=== PATIENT | female | born 1945 | race Caucasian/White ===

== ENCOUNTER 2024-10-20 16:30 | Inpatient (IN) | payer MEDICARE, BC ==
[2024-10-20] MEDS: VERAPAMIL SYRINGE (5 MG/10 ML) INTRAARTER ONE (09:28)
[~2024-10-20 16:30] MED LIST: HEPARIN SODIUM,PORCINE (1 ML) 2,500 UNIT in SODIUM CHLORIDE 0.9% 250 ML IRRIGATION PRN; HEPARIN SODIUM,PORCINE 10,000 UNIT in SODIUM CHLORIDE 0.9% 1,000 ML IRRIGATION PRN
--- NOTE | 2024-10-20 16:39 | ED ---
General Adult HPI - General Stated complaint: chest pain Time Seen by Provider: 10/20/24 16:36 - History of Present Illness Initial comments: Dictation was produced using [employer] dictation software. please excuse any grammatical, word or spelling errors. Chief Complaint: 79-year-old female transfer from [facility] for concerns of acute coronary syndrome History of Present Illness: Patient is an 79-year-old female initially presented to [facility] for chest pressure. Patient denies any history of cardiac issues. States that she does have a history of hypertension dyslipidemia. She was worked up at [facility] where she was found to have abnormal EKG along with elevated troponins. Case was discussed with cardiology who did not feel that patient's EKG showed troponin elevations. At the bedside patient states that her symptoms are significantly improved. She states that she has significant family history of heart attacks. The ROS documented in this emergency department record has been reviewed and confirmed by me. Those systems with pertinent positive or negative responses have been documented in the HPI. All other systems are other negative and/or noncontributory. - Related Data Home Medications Medication Instructions Recorded Confirmed Atorvastatin [Lipitor] 40 mg PO HS 10/20/24 10/20/24 Lisinopril-Hctz 20-12.5 mg 1 tab PO HS 10/20/24 10/20/24 [Zestoretic 20-12.5] Meclizine [Antivert] 25 mg PO HS 10/20/24 10/20/24 atenoloL [Tenormin] 25 mg PO HS 10/20/24 10/20/24 Allergies Allergy/AdvReac Type Severity Reaction Status Date / Time cephalexin [From Keflex] Allergy Rash/Hives Verified 10/20/24 17:11 codeine Allergy DIZZINESS Verified 10/20/24 17:11 diazepam [From Valium] AdvReac Unknown Verified 10/20/24 16:40 Review of Systems ROS Statement: Those systems with pertinent positive or pertinent negative responses have been documented in the HPI. ROS Other: All systems not noted in ROS Statement are negative. General Exam - General Exam Comments Initial Comments: PHYSICAL EXAM: General Impression: Alert and oriented x3, not in acute distress HEENT: Normocephalic atraumatic, extra-ocular movements intact, pupils equal and reactive to light bilaterally, mucous membranes moist. Cardiovascular: Heart regular rate and rhythm Chest: Able to complete full sentences, no retractions, no tachypnea Abdomen: abdomen soft, non-tender, non-distended, no organomegaly Musculoskeletal: Pulses present and equal in all extremities, no peripheral edema Motor: no focal deficits noted Neurological: CN II-XII grossly intact, no focal motor or sensory deficits noted Skin: Intact with no visualized rashes Psych: Normal affect and mood Course Vital Signs 10/20/24 10/20/24 16:33 16:51 Temperature 98.4 F Pulse Rate 93 85 Respiratory 16 18 Rate Blood Pressure 130/101 132/107 O2 Sat by Pulse 98 98 Oximetry - Reevaluation(s) Reevaluation #1: 10/20/24 16:37 I did speak with transferring nurse practitioner from [facility] regarding patient's clinical status I did also receive a call from cardiology, Dr. Park who reviewed patient's EKG from [facility] states that he did not see any appreciable EKG abnormalities. EKG Findings - EKG Comments: EKG Findings:: My EKG interpretation: Ventricular rate 9, sinus rhythm,. 166, QRS 84, QTc 395. No IL prolongation, no QTC prolongation. Very mild diffuse ST elevations with concavity upward likely representing benign early repolarization. Overall, this EKG is specific Medical Decision Making - Medical Decision Making Was pt. sent in by a medical professional or institution (, PA, MRI TECHNICIAN, urgent care, hospital, or skilled nursing...) When possible be specific @ -Outside emergency department Did you speak to anyone other than the patient for history (EMS, parent, family, police, friend...)? What history was obtained from this source @ -Transferred nurse practitioner as described above Did you review nursing and triage notes (agree or disagree)? Why? @ -I reviewed and agree with nursing and triage notes Were old charts reviewed (outside hosp., previous admission, EMS record, old EKG, old radiological studies, urgent care reports/EKG's, skilled nursing records)? Report findings @ -Transfer documentations were reviewed showing high-sensitivity troponin elevation of 1500 Differential Diagnosis (chest pain, altered mental status, abdominal pain women, abdominal pain men, vaginal bleeding, musculoskeletal, weakness, fever, dyspnea, syncope, headache, dizziness, GI bleed, back pain, seizure, CVA, palpatations, mental health)? @ -Differential Chest Pain: Stable Angina, Unstable Angina, STEMI, NSTEMI Aortic Dissection, Pneumothorax, Musculoskeletal, Esophageal Spasm GERD, Cholecystitis, Pancreatitis, Zoster, this is not meant to be an all-inclusive list. EKG interpreted by me (3pts min.). @ -See above repeat EKG shows no dynamic changes X-rays interpreted by me (1pt min.). @ -None done CT interpreted by me (1pt min.). @ -None done U/S interpreted by me (1pt. min.). @ -None done What testing was considered but not performed or refused? (CT, X-rays, U/S, labs)? Why? @ -None What meds were considered but not given or refused? Why? @ -None Was smoking cessation discussed for >3mins.? @ -No Were there social determinants of health that impacted care today? How? (Homelessness, low income, unemployed, alcoholism, drug addiction, transportation, low edu. Level, literacy, decrease access to med. care, senior care, rehab)? @ -No Was there de-escalation of care discussed even if they declined (Discuss DNR or withdrawal of care, Hospice)? DNR status @ -No What co-morbidities impacted this encounter? (DM, HTN, Smoking, COPD, CAD, Cancer, CVA, ARF, Chemo, Hep., AIDS, mental health diagnosis, sleep apnea, morbid obesity)? @ -History of myocardial infarction, hypertension Was patient admitted / discharged? Hospital course, mention meds given and route, prescriptions, significant lab abnormalities, going to OR and other pertinent info. @ -79-year-old female presents to the emergency department for acute coronary syndrome. Vital signs stable. Transfer documentations reviewed. No obvious signs of ischemia infarction seen on prehospital EKG. Her EKG showed similar findings. Repeat EKG showed no dynamic changes. Patient continued on heparin. Crossed over to nitroglycerin topical. Case discussed with hospitalist for admission. Did you discuss the management of the patient with other professionals (professionals i.e. , PA, MRI TECHNICIAN, lab, RT, psych nurse, social media developer, residential program coordinator, teacher, strike warfare/missile systems officer, case finisher)? Give summary @ -See above Was critical care preformed (if so, how long)? @ -Yes, 33 minutes for management of acute coronary syndrome Undiagnosed new problem with uncertain prognosis? @ -No Drug Therapy requiring intensive monitoring for toxicity (Heparin, Nitro, Insulin, Cardizem)? @ -No Were any procedures done? @ -No Diagnosis/symptom? Acute, or Chronic, or Acute on Chronic? Uncomplicated (without systemic symptoms) or Complicated (systemic symptoms)? @ -Acute coronary syndrome Side effects of treatment? @ -No Exacerbation, Progression, or Severe Exacerbation? @ -No Poses a threat to life or bodily function? How? (Chest pain, USA, MA, pneumonia, PE, COPD, DKA, ARF, appy, cholecystitis, CVA, Diverticulitis, Homicidal, Suicidal, threat to staff... and all critical care pts) @ -yes Disposition Clinical Impression: Coronary syndrome, acute Disposition: ADMITTED IP TO THIS HOSP Condition: Serious Referrals: Cheyenne William MD [Primary Care Provider] - 1-2 days Decision Time: 17:22
[2024-10-20] MEDS ORDERED: HEPARIN SODIUM 1,000 UN/ML (10ML VL) IV PRN (16:59)
[2024-10-20] MEDS: HEPARIN SOD,PORK IN 0.45% NACL 25,000 UNIT in 0.45% NACL 1 250ML.BAG IV SCH (17:21)
[2024-10-20] MEDS: HEPARIN SODIUM 1,000 UN/ML (10ML VL) IV ONE (17:23)
[2024-10-20] MEDS ORDERED: ALPRAZolam 0.25 MG TAB PO PRN (18:00)
[2024-10-20] MEDS ORDERED: NITROGLYCERIN SL TABS 0.4 MG TAB SUBLINGUAL PRN (18:00)
[2024-10-20] MEDS ORDERED: ALPRAZolam 0.5 MG TAB PO PRN (18:00)
[2024-10-20] MEDS: ATORVASTATIN 80 MG TAB PO STA (18:24)
[2024-10-20] MEDS: ASPIRIN 325 MG TAB PO STA (18:24)
[2024-10-20] MEDS: NITROGLYCERIN OINT 1 INCH/GM PACKET TOPICAL SCH (18:26)
[2024-10-20] MEDS: SODIUM CHLORIDE 0.9% 1,000 ML IV ONE (19:25)
[2024-10-20] MEDS: MIDAZOLAM 2 MG/2 ML VIAL IVP ONE (19:25)
[2024-10-20] MEDS: LIDOCAINE 1% INJ 10MG/ML (20 ML MDV) SQ ONE (19:27)
[2024-10-20] MEDS ORDERED: RX INFO: IV CONTRAST WAS GIVEN 1 EACH MISC MISCELLANE PRN (19:45)
--- NOTE | 2024-10-20 19:47 | P.PCN ---
Date of Procedure: 10/20/24 Operative Findings: CARDIAC CATHETERIZATION PERFORMING PHYSICIAN: Deangelo Shah MD, RPVI PROCEDURE PERFORMED: 1. Selective right and left coronary angiogram 2. Left heart catheterization 3. Ultrasound-guided access of the right radial artery INDICATION: Acute non-ST elevation myocardial infarction COMPLICATION: None APPROACH: Right radial artery LEVEL OF SEDATION: Moderate with a sedation length of 17 minutes PROCEDURE DESCRIPTION: After obtaining an informed consent, the patient was brought to cardiac lab aide. Local anesthesia was performed using lidocaine subcutaneously. The right radial artery was cannulated using Seldinger technique, the guidewire passed easily, following that we advanced a 5-Burmese sheath dilator assembly, the wire and dilator were removed and sheath was flushed. Following that, 2 mg of verapamil along with 5000 unit heparin were given. Selective right and left coronary angiogram using a 6-Burmese JR4 and JL 3.5 catheters. Following that we did left heart catheterization using 6-Burmese pigtail catheter. The procedure was completed there was no complication. SELECTIVE CORONARY ANGIOGRAM: The right coronary artery: Large-caliber vessel nondominant vessel appears to be angiographically normal Left main: Is angiographically normal The left circumflex: Large caliber vessel nondominant vessel with no evidence of high-grade stenosis identified The left anterior descending artery: The ostial LAD has a lesion appears to be in the range of 40%. The mid and distal LAD appeared to be angiographically normal HEMODYNAMICS: The LVEDP was 20 mmHg with no significant gradient across aortic valve CONCLUSION: 1. Intermediate disease involving the ostial LAD 2. Elevated left-sided filling pressure POSTPROCEDURE MANAGEMENT: Medical treatment Consider IFR of the LAD if he remains symptomatic
[2024-10-20] MEDS: IOPAMIDOL-370 100ML BTL INJ ONE (19:49)
[2024-10-20] MEDS: HEPARIN SODIUM,PORCINE 10,000 UNIT in SODIUM CHLORIDE 0.9% 1,000 ML IRRIGATION ONE (19:49)
[2024-10-20] MEDS: HEPARIN SODIUM,PORCINE (1 ML) 2,500 UNIT in SODIUM CHLORIDE 0.9% 250 ML IRRIGATION ONE (19:49)
--- NOTE | 2024-10-20 19:50 | P.PCN ---
Date of Procedure: 10/20/24 Operative Findings: This is an 79-year-old female patient with a past medical history significant for hypertension and dyslipidemia presented to the emergency department initially at [facility] complaining of chest discomfort but she was in her usual state of health till earlier today when she started experiencing discomfort in the middle of the chest as a burning sensation with no radiation to her arms or neck or shoulders or back and no associated symptoms of shortness of breath or sweating or dizziness or lightheadedness or any feeling of heart racing or fluttering or presyncope or syncope. Initially she presented to the emergency department at [facility] where she underwent further workup including EKG showing sinus mechanism with nonspecific ST and T wave abnormalities but the troponin came to be elevated and consistent with acute coronary syndrome. The rest of the workup including CBC and BMP came in to be unremarkable. Giving the ongoing chest discomfort in spite of being on nitroglycerin IV and heparin IV she was transferred to [facility] for a heart catheterization. She underwent a heart catheterization earlier today and that revealed no evidence of high-grade stenosis but intermediate lesion involving the ostial LAD. There was PRISCILLA II flow in the LAD as well. The apex of the apex of the heart was not tisha concerning for Takotsubo cardiomyopathy will obtain an echocardiogram for further clarification. The physical examination is remarkable for stable vital signs with regular rate and rhythm and soft systolic murmur at the apical area with a clear breathing sounds bilaterally and no edema was noted Assessment Acute coronary syndrome/acute non-ST elevation myocardial infarction Hypertension Dyslipidemia Plan Continue the current medical regimen Obtain an echocardiogram with Doppler Dual antiplatelet therapy along with high intensity statin Aggressive blood pressure lowering Follow-up with the patient
[2024-10-20] MEDS: ATORVASTATIN 80 MG TAB PO SCH (20:17)
[2024-10-20] MEDS: SODIUM CHLORIDE 0.9% 1,000 ML IV SCH (20:17)
--- NOTE | 2024-10-20 20:51 | P.HPIM ---
History of Present Illness H&P Date: 10/20/24 Chief Complaint: Chest pressure Very pleasant 79-year-old patient who follows with Dr. Cheyenne William. Chronic stable medical conditions include Mnire's disease, hypertension, hyperlipidemia. Because of manage she is sometimes dizzy. She lost her in June 2024. Does get anxious. Woke up this morning with chest pressure. Did not go away. Also has some dizziness. Very decided to come down to [facility]. EKG showed poor R wave progression. High sensitive troponin showed 1595. Patient was taken to the cardiac Research Advisor. By Dr. Shah. Patient was found to have LAD 40% lesion. Review of systems: GEN.: Tired EYES: None HEENT: None NECK: None RESPIRATORY: None CARDIOVASCULAR: None GASTROINTESTINAL: None GENITOURINARY: None MUSCULOSKELETAL: None LYMPHATICS: None HEMATOLOGICAL: None PSYCHIATRY: Anxious e NEUROLOGICAL: Trouble sleeping e Social history: about 5 months ago. No smoking alcohol. Physical examination: VITAL SIGNS: 98.4, 98, 18, 129 x 86, 98% room air GENERAL: BMI 27.5, reclining in bed awake slightly anxious. EYES: Pupils equal. Conjunctiva lilliana l. HEENT: External appearance of nose and ears normal, oral cavity grossly normal. NECK: JVD not raised; masses not palpable. HEART: First and second heart sounds are normal; no edema. LUNGS: Respiratory rate normal; clear to auscultation. ABDOMEN: Soft, nontender, liver spleen not palpable, no masses palpable. PSYCH: [Alert and oriented x3; mood and affect anxious. MUSCULOSKELETAL:No Clubbing/cyanosis;muscles-grossly intact NEUROLOGICAL: Cranial nerves grossly intact; no facial asymmetry, power and sensation grossly intact. LYMPHATICS: No lymph nodes palpable in the axilla and neck INVESTIGATIONS, reviewed in the clinical context: Troponin I 3.7 Lab work from [facility]: High-sensitivity troponin 1595. Sodium 144 potassium 4.1 BUN 14 creatinine 0.88 white count 6.9 hemoglobin 14.2 platelets 167 EKG tracing sinus rhythm poor R wave progression Assessment plan: -Acute non-ST elevation myocardial infarction, possibly plaque rupture Received IV heparin in the ER Cardiac cath showing 40% lesion in LAD. Medical management -Nonobstructive coronary artery disease. Aspirin. Lipitor. Plavix. -Essential hypertension Toprol-XL 25 mg a day -Hyperlipidemia Lipitor 80 mg nightly -Chronic insomnia Ambien 2.5 mg nightly -Anxiety disorder not otherwise specified Paxil 10 mg a day -Mnire's disease -Full code Care was discussed with the patient. Questions answered. 2D echo ordered. Past Medical History Past Medical History: Chest Pain / Angina Additional Past Medical History / Comment(s): Meniere's disease dx 2016 History of Any Multi-Drug Resistant Organisms: None Reported Past Surgical History: Hysterectomy, Joint Replacement Additional Past Surgical History / Comment(s): Knee sx Past Psychological History: No Psychological Hx Reported Smoking Status: Never smoker Past Alcohol Use History: None Reported Past Drug Use History: None Reported Medications and Allergies Home Medications Medication Instructions Recorded Confirmed Type Atorvastatin [Lipitor] 40 mg PO HS 10/20/24 10/20/24 History Lisinopril-Hctz 20-12.5 mg 1 tab PO HS 10/20/24 10/20/24 History [Zestoretic 20-12.5] Meclizine [Antivert] 25 mg PO HS 10/20/24 10/20/24 History atenoloL [Tenormin] 25 mg PO HS 10/20/24 10/20/24 History Allergies Allergy/AdvReac Type Severity Reaction Status Date / Time cephalexin [From Keflex] Allergy Rash/Hives Verified 10/20/24 17:11 codeine Allergy DIZZINESS Verified 10/20/24 17:11 diazepam [From Valium] AdvReac Unknown Verified 10/20/24 16:40 Physical Exam Vitals: Vital Signs Temp Pulse Resp BP Pulse Ox 10/20/24 19:07 98 18 129/86 98 10/20/24 18:25 87 18 128/96 98 10/20/24 18:00 89 18 123/98 99 10/20/24 16:51 85 18 132/107 98 10/20/24 16:33 98.4 F 93 16 130/101 98 Intake and Output 10/20/24 10/20/24 10/20/24 06:59 14:59 22:59 Intake Total 100 Balance 100 Intake: IV 100 Other: Weight 61.689 kg Results Labs: Abnormal Lab Results - Last 24 Hours (Table) 10/20/24 Range/Units 17:30 Troponin I 3.710 H* (0.000-0.034) ng/mL
[2024-10-21] MEDS: ZOLPIDEM 5 MG TAB PO SCH (05:25)
[2024-10-21] MEDS: METOPROLOL SUCCINATE (ER) 25 MG TAB.ER.24H PO SCH (08:55)
[2024-10-21] MEDS: PARoxetine 10 MG TAB PO SCH (08:55)
[2024-10-21] MEDS: ASPIRIN 81 MG PO SCH (08:55)
[2024-10-21] MEDS: CLOPIDOGREL 75 MG TAB PO SCH (08:56)
[2024-10-21] MEDS: ACETAMINOPHEN TAB 500 MG TAB PO PRN (08:56)
[2024-10-21] MEDS ORDERED: ASPIRIN 325 MG TAB PO SCH (09:00)
[2024-10-21 10:28] LABS: Chol/HDL Ratio 2.83 Ratio; LDL Cholesterol,Calculated 70.1 mg/dL (0.0-131.0)
--- NOTE | 2024-10-21 10:46 | P.PN ---
Subjective Progress Note Date: 10/21/24 This is an 79-year-old female patient with a past medical history significant for hypertension and dyslipidemia presented to the emergency department initially at [facility] complaining of chest discomfort but she was in her usual state of health till earlier today when she started experien cing discomfort in the middle of the chest as a burning sensation with no radiation to her arms or neck or shoulders or back and no associated symptoms of shortness of breath or sweating or dizziness or lightheadedness or any feeling of heart racing or fluttering or presyncope or syncope. Initially she presented to the emergency department at [facility] where she underwent further workup including EKG showing sinus mechanism with nonspecific ST and T wave abnormalities but the troponin came to be elevated and consistent with acute coronary syndrome. The rest of the workup including CBC and BMP came in to be unremarkable. Giving the ongoing chest discomfort in spite of being on nitroglycerin IV and heparin IV she was transferred to [facility] for a heart catheterization. She underwent a heart catheterization earlier today and that revealed no evidence of high-grade stenosis but intermediate lesion involving the ostial LAD. There was PRISCILLA II flow in the LAD as well. The apex of the apex of the heart was not tisha concerning for Takotsubo cardiomyopathy will obtain an echocardiogram for further clarification. 10/21 Patient seen and examined. No complaints of chest pain. Yesterday patient underwent cardiac catheterization as above. She has been started on aspirin, statin, Plavix and Toprol-XL. No complaints of chest pain. Blood pressure 108/73, heart rate 80, pulse ox 96% on room air The physical examination is remarkable for stable vital signs with regular rate and rhythm and soft systolic murmur at the apical area with a clear breathing sounds bilaterally and no edema was noted Assessment Acute coronary syndrome/acute non-ST elevation myocardial infarction Hypertension Dyslipidemia Plan Continue the current medical regimen Obtain an echocardiogram with Doppler Dual antiplatelet therapy along with high intensity statin If echocardiogram is unremarkable, patient is cleared for discharge home today. Patient will follow-up with Dr. Shah in 1 week Nurse practitioner note has been reviewed, I agree with documented findings and plan of care. Patient was seen and examined. Objective - Vital Signs Vital signs: Vital Signs Temp 98.0 F 10/21/24 08:53 Pulse 80 10/21/24 08:53 Resp 16 10/21/24 08:53 BP 108/73 10/21/24 08:53 Pulse Ox 96 10/21/24 08:53 FiO2 Intake & Output 10/20/24 10/21/24 10/21/24 18:59 06:59 18:59 Intake Total 100 240 Balance 100 240 Weight 61.689 kg 62.4 kg Intake: IV 100 Oral 240 Other: # Voids 1 - Labs Labs: Abnormal Lab Results - Last 24 Hours (Table) 10/20/24 10/20/24 10/20/24 Range/Units 17:30 20:17 23:22 Troponin I 3.710 H* 3.150 H* 3.100 H* (0.000-0.034) ng/mL
[2024-10-21] MEDS: SACUBITRIL/VALSARTAN 24 MG-26 MG TABLET PO SCH (14:49)
[2024-10-21] MEDS: DAPAGLIFLOZIN PROPANEDIOL 10 MG TABLET PO SCH (14:49)
--- NOTE | 2024-10-21 17:37 | CA ---
Transthoracic Echo Report Name: Gracy Leach Age: 79 Gender: F : 1945 Exam Date: 10/21/2024 13:38 Exam Location: [facility] Ht (in): 59 Wt (lb): 136 Ordering Physician: Deangelo Shah MD ([id number]) Attending/Referring Phys: Steam Conditioning Operator Lorrie Valente RDCS Procedure CPT: Indications: ACS Cardiac Hx: Technical Quality: Fair Contrast 1: Definity Total Dose (mL): 2 Contrast 2: Total Dose (mL): MEASUREMENTS (Male / Female) Normal Values 2D ECHO LV Diastolic Diameter PLAX 3.8 cm 4.2 - 5.9 / 3.9 - 5.3 cm LV Systolic Diameter PLAX 2.6 cm IVS Diastolic Thickness 1.1 cm 0.6 - 1.0 / 0.6 - 0.9 cm LVPW Diastolic Thickness 1.1 cm 0.6 - 1.0 / 0.6 - 0.9 cm LV Relative Wall Thickness 0.6 RV Internal Dim ED PLAX 1.7 cm LA Volume 41.3 cm??? 18 - 58 / 22 - 52 cm??? LA Volume Index 25.5 cm???/m??? 16 - 28 cm???/m??? M-MODE Aortic Root Diameter MM 3.1 cm LA Systolic Diameter MM 2.4 cm LA Ao Ratio MM 0.8 AV Cusp Separation MM 1.7 cm DOPPLER AI Peak Velocity 428.9 cm/s AI Peak Gradient 73.6 mmHg AI Pressure Half Time 517.2 ms MV Area PHT 3.1 cm??? Mitral E Point Velocity 44.6 cm/s Mitral A Point Velocity 51.4 cm/s Mitral E to A Ratio 0.9 MV Deceleration Time 242.3 ms TR Peak Velocity 261.9 cm/s TR Peak Gradient 27.4 mmHg Right Ventricular Systolic Press 32.0 mmHg FINDINGS Left Ventricle Left ventricular ejection fraction is estimated at 25-30 %. Anteroapical and anteroseptal akinesis. Cannot exclude a small apical thrombus. Findings suggestive of Takotsubo syndrome.left ventricular cavity size normal. Mildly increased left ventricular wall thickness. Right Ventricle Normal right ventricular size and function. . Right ventricular systolic pressure within normal limits. Right Atrium Normal right atrial size. Left Atrium Normal left atrial size. Mitral Valve Structurally normal mitral valve. Moderate mitral regurgitation. No mitral stenosis. Aortic Valve Trileaflet aortic valve. Moderate aortic regurgitation. No aortic stenosis. Tricuspid Valve Structurally normal tricuspid valve. Moderate tricuspid regurgitation. No tricuspid stenosis. Pulmonic Valve Structurally normal pulmonic valve. Mild pulmonic regurgitation. No pulmonic stenosis. Pericardium Minimal pericardial effusion (normal variant). Aorta Normal size aortic root and proximal ascending aorta. CONCLUSIONS 1. Severely impaired left ventricular systolic function, suggestive of Takotsubo syndrome. Cannot exclude small apical thrombus. 2. Moderate mitral, aortic and tricuspid regurgitation with no evidence of pulmonary hypertension. Previewed by: Dr. Adolfo Gray MD (Electronically Signed) Final Date: 21 October 2024 17:36
--- NOTE | 2024-10-21 19:16 | P.PN ---
Progress Note - Text Progress Note Date: 10/21/24 Chief Complaint: Chest pressure Very pleasant 79-year-old patient who follows with Dr. Cheyenne William. Chronic stable medical conditions include Mnire's disease, hypertension, hyperlipidemia. Because of manage she is sometimes dizzy. She lost her in June 2024. Does get anxious. Woke up this morning with chest pressure. Did not go away. Also has some dizziness. Very decided to come down to [facility]. EKG showed poor R wave progression. High sensitive troponin showed 1595. Patient was taken to the cardiac Assistant Manager Bilingual. By Dr. Shah. Patient was found to have LAD 40% lesion. April 20: Laying in bed. Comfortable. Did ambulate. Does take Antivert for Mnire's disease. 2D echo came back showing EF of 25 to 30%. LifeVest was ordered. Nurse informed me this evening that they were not able to contact the LifeVest technical support representative. Active Medications Acetaminophen (Acetaminophen Tab 500 Mg Tab) 500 mg PO Q6HR PRN PRN Reason: Fever and/ or Pain Last Admin: 10/21/24 08:56 Dose: 500 mg Alprazolam (Alprazolam 0.25 Mg Tab) 0.25 mg PO Q6HR PRN PRN Reason: Mild Anxiety Alprazolam (Alprazolam 0.5 Mg Tab) 0.5 mg PO Q6HR PRN PRN Reason: Moderate Anxiety Aspirin (Aspirin 81 Mg) 81 mg PO DAILY [facility] Last Admin: 10/21/24 08:55 Dose: 81 mg Atorvastatin Calcium (Atorvastatin 80 Mg Tab) 80 mg PO HS [facility] Last Admin: 10/20/24 20:17 Dose: 80 mg Clopidogrel Bisulfate (Clopidogrel 75 Mg Tab) 75 mg PO DAILY [facility] Last Admin: 10/21/24 08:56 Dose: 75 mg Dapagliflozin (Dapagliflozin Propanediol 10 Mg Tablet) 10 mg PO DAILY [facility] Last Admin: 10/21/24 14:49 Dose: 10 mg Heparin Sodium (Porcine) (Heparin Sodium 1,000 Un/Ml (10ml Vl)) 0 unit IV PER PROTOCOL PRN; Protocol PRN Reason: Low PTT Heparin Sodium (Porcine) 10, (000 unit/ Sodium Chloride) 1,001 mls @ 999 mls/hr IRRIGATION ONCE PRN PRN Reason: INTRA-OP Stop: 10/21/24 23:00 Heparin Sodium (Porcine) 2,500 (unit/ Sodium Chloride) 250.5 mls @ 250 mls/hr IRRIGATION ONCE PRN PRN Reason: INTRA-OP Stop: 10/21/24 23:00 Metoprolol Succinate (Metoprolol Succinate (Er) 25 Mg Tab.Er.24h) 25 mg PO DAILY [facility] Last Admin: 10/21/24 08:55 Dose: 25 mg Miscellaneous Information (Rx Info: Iv Contrast Was Given 1 Each Misc) 1 each MISCELLANE DAILY PRN PRN Reason: Per Protocol Stop: 10/22/24 19:45 Nitroglycerin (Nitroglycerin Oint 1 Inch/Gm Packet) 1 inch TOPICAL Q6HR [facility] Last Admin: 10/21/24 17:17 Dose: Not Given Paroxetine HCl (Paroxetine 10 Mg Tab) 10 mg PO DAILY [facility] Last Admin: 10/21/24 08:55 Dose: 10 mg Sacubitril/Valsartan (Sacubitril/Valsartan 24 Mg-26 Mg Tablet) 0.5 each PO BID [facility] Last Admin: 10/21/24 14:49 Dose: 0.5 each Zolpidem Tartrate (Zolpidem 5 Mg Tab) 2.5 mg PO HS [facility] Last Admin: 10/21/24 05:25 Dose: Not Given Social history: about 5 months ago. No smoking alcohol. Physical examination: VITAL SIGNS: 98, 72, 16, 109 x 76, 98% room air GENERAL: BMI 27.5, reclining bed, comfortable EYES: Pupils equal. Conjunctiva lilliana l. HEENT: External appearance of nose and ears normal, oral cavity grossly normal. NECK: JVD not raised; masses not palpable. HEART: First and second heart sounds are normal; no edema. LUNGS: Respiratory rate normal; clear to auscultation. ABDOMEN: Soft, nontender, liver spleen not palpable, no masses palpable. PSYCH: [Alert and oriented x3; mood and affect anxious. MUSCULOSKELETAL:No Clubbing/cyanosis;muscles-grossly intact INVESTIGATIONS, reviewed in the clinical context: 2D echocardiogram: EF 20-25%. Anteroapical and anteroseptal akinesis. Cannot exclude a small apical thrombus. Moderate MR. Moderate AR. Moderate TR. Troponin I 3.7, 3.1, 3.1 LDL 70.1 Lab work from [facility]: High-sensitivity troponin 1595. Sodium 144 potassium 4.1 BUN 14 creatinine 0.88 white count 6.9 hemoglobin 14.2 platelets 167 EKG tracing sinus rhythm poor R wave progression Assessment plan: -Acute non-ST elevation myocardial infarction, possibly plaque rupture Received IV heparin in the ER Cardiac cath showing 40% lesion in LAD. Medical management -Possible apical thrombus reported en route to 2D echo Spoke to nurse Lauryn to check with cardio if they would consider anticoagulation versus ROGELIO to confirm the same -Nonobstructive coronary artery disease. Aspirin. Lipitor. Plavix. -Cardiomyopathy, could be Takotsubo syndrome. EF 20 to 25%. Farxiga added. DC Nitropaste. Entresto added. Awaiting LifeVest -Moderate MR, moderate AR, moderate TR. Follow with cardiology -Essential hypertension Toprol-XL 25 mg a day -Hyperlipidemia Lipitor 80 mg nightly -Chronic insomnia Ambien 2.5 mg nightly -Anxiety disorder not otherwise specified Paxil 10 mg a day started -Mnire's disease -Full code LifeVest pending. Entresto Toprol-XL. Cardiology to decide about anticoagulation based on possibility of apical thrombus. The setting of low EF. Past Medical History Past Medical History: Chest Pain / Angina Additional Past Medical History / Comment(s): Meniere's disease dx 2016 History of Any Multi-Drug Resistant Organisms: None Reported Past Surgical History: Hysterectomy, Joint Replacement Additional Past Surgical History / Comment(s): Knee sx Past Psychological History: No Psychological Hx Reported Smoking Status: Never smoker Past Alcohol Use History: None Reported Past Drug Use History: None Reported
[2024-10-21] MEDS: APIXABAN 5 MG TAB PO SCH (20:56)
[2024-10-22 04:06] VITALS: RESP 14
[2024-10-22 08:05] LABS: African American GFR (CKD) 87 (>60 ml/min/1.73 sqM); Anion Gap 5 mmol/L; Blood Urea Nitrogen 12 mg/dL (7-17); Calcium 8.4 mg/dL (8.4-10.2); Carbon Dioxide 23 mmol/L (22-30); Chloride 111 mmol/L (98-107); Glucose 93 mg/dL (74-99); Non-African American GFR(CKD) 76 (>60 ml/min/1.73 sqM); Potassium 4.2 mmol/L (3.5-5.1); Sodium 139 mmol/L (137-145)
[2024-10-22 08:21] VITALS: TEMP 98.4
[2024-10-22 11:57] VITALS: BP 97/66; PULSE 64
--- NOTE | 2024-10-22 13:44 | P.DS ---
Providers Date of admission: 10/20/24 17:20 Expected date of discharge: 10/22/24 Attending physician: Yogi Mcclain Consults: 10/20/24 17:17 Consult Physician Urgent Consulting Provider: Deangelo Shah Consult Reason/Comments: chest pain Do you want consulting provider notified?: Already Contacted Primary care physician: Cheyenne William MD Hospital Course: Chief Complaint: Chest pressure Very pleasant 79-year-old patient who follows with Dr. Cheyenne William. Chronic stable medical conditions include Mnire's disease, hypertension, hyperlipidemia. Because of manage she is sometimes dizzy. She lost her in June 2024. Does get anxious. Woke up this morning with chest pressure. Did not go away. Also has some dizziness. Very decided to come down to [facility]. EKG showed poor R wave progression. High sensitive troponin showed 1595. Patient was taken to the cardiac [employer] Safety Program Coordinator. By Dr. Shah. Patient was found to have LAD 40% lesion. October 21: Laying in bed. Comfortable. Did ambulate. Does take Antivert for Mnire's disease. 2D echo came back showing EF of 25 to 30%. LifeVest was or dered. Nurse informed me this evening that they were not able to contact the LifeVest food service representative. October 22: Comfortable. LifeVest obtained. Home medication reviewed. Follow- up with cardiology. Dr. Shah Social history: about 5 months ago. No smoking alcohol. Physical examination: VITAL SIGNS: 98.4, 64, 14, 97 x 66, 97% room air GENERAL: BMI 27.5, r comfortable EYES: Pupils equal. Conjunctiva lilliana l. HEENT: External appearance of nose and ears normal, oral cavity grossly normal. NECK: JVD not raised; masses not palpable. HEART: First and second heart sounds are normal; no edema. LUNGS: Respiratory rate normal; clear to auscultation. ABDOMEN: Soft, nontender, liver spleen not palpable, no masses palpable. PSYCH: [Alert and oriented x3; mood and affect anxious. MUSCULOSKELETAL:No Clubbing/cyanosis;muscles-grossly intact INVESTIGATIONS, reviewed in the clinical context: October 22: Potassium 4.2 creatinine 0.75 2D echocardiogram: EF 20-25%. Anteroapical and anteroseptal akinesis. Cannot exclude a small apical thrombus. Moderate MR. Moderate AR. Moderate TR. Troponin I 3.7, 3.1, 3.1 LDL 70.1 Lab work from [facility]: High-sensitivity troponin 1595. Sodium 144 potassium 4.1 BUN 14 creatinine 0.88 white count 6.9 hemoglobin 14.2 platelets 167 EKG tracing sinus rhythm poor R wave progression Assessment plan: -Acute non-ST elevation myocardial infarction, possibly plaque rupture Received IV heparin in the ER Cardiac cath showing 40% lesion in LAD. Medical management -Possible apical thrombus reported en route to 2D echo Eliquis 5 mg twice daily. -Nonobstructive coronary artery disease. Aspirin. Lipitor. Plavix. -Cardiomyopathy, could be Takotsubo syndrome. EF 20 to 25%. Farxiga added. DC Nitropaste. Entresto added. LifeVest obtained -Moderate MR, moderate AR, moderate TR. Follow with cardiology -Essential hypertension Toprol-XL 25 mg a day -Hyperlipidemia Lipitor 80 mg nightly -Chronic insomnia Ambien 2.5 mg nightly -Anxiety disorder not otherwise specified Paxil 10 mg a day started -Mnire's disease -Full code Disposition: Home Past Medical History Past Medical History: Chest Pain / Angina Additional Past Medical History / Comment(s): Meniere's disease dx 2016 History of Any Multi-Drug Resistant Organisms: None Reported Past Surgical History: Hysterectomy, Joint Replacement Additional Past Surgical History / Comment(s): Knee sx Past Psychological History: No Psychological Hx Reported Smoking Status: Never smoker Past Alcohol Use History: None Reported Past Drug Use History: None Reported Plan - Discharge Summary Discharge Rx Participant: No New Discharge Prescriptions: New Atorvastatin [Lipitor] 80 mg PO HS #90 tab Metoprolol Succinate (ER) [Toprol XL] 25 mg PO DAILY #90 tab PARoxetine [Paxil] 10 mg PO DAILY #30 tab Apixaban [Eliquis] 5 mg PO BID #60 tab Aspirin 81 mg PO DAILY tab Clopidogrel [Plavix] 75 mg PO DAILY #90 tab Sacubitril/Valsartan [Entresto 24 mg-26 mg Tablet] 0.5 each PO BID #60 tab Changed Meclizine [Antivert] 25 mg PO DAILY #0 Discontinued Lisinopril-Hctz 20-12.5 mg [Zestoretic 20-12.5] 1 tab PO HS Atorvastatin [Lipitor] 40 mg PO HS atenoloL [Tenormin] 25 mg PO HS Discharge Medication List Aspirin 81 mg PO DAILY tab 10/21/24 [Rx] Atorvastatin [Lipitor] 80 mg PO HS #90 tab 10/21/24 [Rx] Clopidogrel [Plavix] 75 mg PO DAILY #90 tab 10/21/24 [Rx] Meclizine [Antivert] 25 mg PO DAILY #0 10/21/24 [Rx] Metoprolol Succinate (ER) [Toprol XL] 25 mg PO DAILY #90 tab 10/21/24 [Rx] PARoxetine [Paxil] 10 mg PO DAILY #30 tab 10/21/24 [Rx] Apixaban [Eliquis] 5 mg PO BID #60 tab 10/22/24 [Rx] Sacubitril/Valsartan [Entresto 24 mg-26 mg Tablet] 0.5 each PO BID #60 tab 10/22/24 [Rx] Follow up Appointment(s)/Referral(s): Deangelo Shah MD [STAFF PHYSICIAN] - 1 Week (please call and make appointment ) Cheyenne William MD [Primary Care Provider] - 1-2 days (please call and make appointment ) Patient Instructions/Handouts: Chest Pain (DC) Discharge Disposition: HOME SELF-CARE
--- NOTE | 2024-10-22 19:52 | P.PN ---
Subjective Progress Note Date: 10/22/24 This is an 79-year-old female patient with a past medical history significant for hypertension and dyslipidemia presented to the emergency department initially at [facility] complaining of chest discomfort but she was in her usual state of health till earlier today when she started experie ncing discomfort in the middle of the chest as a burning sensation with no radiation to her arms or neck or shoulders or back and no associated symptoms of shortness of breath or sweating or dizziness or lightheadedness or any feeling of heart racing or fluttering or presyncope or syncope. Initially she presented to the emergency department at [facility] where she underwent further workup including EKG showing sinus mechanism with nonspecific ST and T wave abnormalities but the troponin came to be elevated and consistent with acute coronary syndrome. The rest of the workup including CBC and BMP came in to be unremarkable. Giving the ongoing chest discomfort in spite of being on nitroglycerin IV and heparin IV she was transferred to [facility] for a heart catheterization. She underwent a heart catheterization earlier today and that revealed no evidence of high-grade stenosis but intermediate lesion involving the ostial LAD. There was PRISCILLA II flow in the LAD as well. The apex of the apex of the heart was not tisha concerning for Takotsubo cardiomyopathy will obtain an echocardiogram for further clarification. 10/21 Patient seen and examined. No complaints of chest pain. Yesterday patient underwent cardiac catheterization as above. She has been started on aspirin, statin, Plavix and Toprol-XL. No complaints of chest pain. Blood pressure 108/73, heart rate 80, pulse ox 96% on room air 10/22/2024 Seen and examined bedside this a.m. Denies any active chest pain chest pressure or shortness of breath. The physical examination is remarkable for stable vital signs with regular rate and rhythm and soft systolic murmur at the apical area with a clear breathing sounds bilaterally and no edema was noted Assessment Takotsubo cardiomyopathy Nonischemic cardiomyopathy EF of 30% Plan Patient will get LifeVest today Continue GDMT Recommend outpatient follow-up with Dr. Antonio within next 1 week recommend outpatient cardiac rehabilitation Patient is otherwise cleared to be discharged from cardiac standpoint Objective - Vital Signs Vital signs: Vital Signs Temp 98.4 F 10/22/24 08:19 Pulse 64 10/22/24 11:55 Resp 14 10/22/24 11:55 BP 97/66 10/22/24 11:55 Pulse Ox 97 10/22/24 11:55 FiO2 Intake & Output 10/22/24 10/22/24 10/23/24 06:59 18:59 06:59 Intake Total 40 20 Balance 40 20 Weight 61.5 kg Intake: IV 40 20 Invasive Line 1 20 10 Invasive Line 2 20 10 Other: # Voids 1 2 - Labs CBC & Chem 7: 10/22/24 06:22 Labs: Abnormal Lab Results - Last 24 Hours (Table) 10/22/24 Range/Units 06:22 Chloride 111 H (98-107) mmol/L
== END 2024-10-22 13:17 | disposition home or self-care (01) | DRG 281 ==
LOC: EC 16:30 → 3SCARD 17:20
PROVIDERS: ADMIT Hospitalist; ATTEND Hospitalist
PROC: B2111ZZ Fluoroscopy of Multiple Coronary Arteries using Low Osmolar Contrast (ICD-10-PCS; 2024-10-20)
PROC: 4A023N7 Measurement of Cardiac Sampling and Pressure, Left Heart, Percutaneous Approach (ICD-10-PCS; principal; 2024-10-20 17:07)
DX: I21.4 Non-ST elevation (NSTEMI) myocardial infarction (principal); I42.8 Other cardiomyopathies; I51.81 Takotsubo syndrome; I10 Essential (primary) hypertension; E78.5 Hyperlipidemia, unspecified; I25.10 Atherosclerotic heart disease of native coronary artery without angina pectoris; F51.04 Psychophysiologic insomnia; H81.09 Meniere's disease, unspecified ear; I25.83 Coronary atherosclerosis due to lipid rich plaque; F41.9 Anxiety disorder, unspecified; Z79.899 Other long term (current) drug therapy; Z88.5 Allergy status to narcotic agent; Z88.8 Allergy status to other drugs, medicaments and biological substances; Z79.82 Long term (current) use of aspirin; Z79.02 Long term (current) use of antithrombotics/antiplatelets
CPT/HCPCS: 36415; 80048; 80061; 84484; 93005; 93306; 93458; 96365; 96366; 99291